=== PATIENT | female | born 1985 | race Caucasian/White ===

== ENCOUNTER → 2023-12-01 16:10 | Outpatient (CLI) | payer OTHER, SELFPAY ==
--- NOTE | 2023-12-01 16:16 | DI.MRI.S_ITS ---
PROCEDURE: MR KNEE LT WO CON INDICATIONS: PAIN TECHNIQUE: Noncontrast sagittal PD fast spin echo and T2 fast spin echo with fat saturation, sagittal 3-D FLASH with fat saturation; coronal T1 spin echo and PD fast spin echo with fat saturation, and axial PD fast spin echo with fat saturation through the knee. COMPARISON: None. FINDINGS: Image quality: Excellent. Anterior Cruciate Ligament: Intact. Posterior Cruciate Ligament: Intact. Medial Collateral Ligament: Intact. Lateral Collateral Ligament: Intact. Medial Meniscus: Intact. Lateral Meniscus: There is a large displaced vertical longitudinal tear of the posterior horn and body of the lateral meniscus with displaced meniscal tissue located in the intercondylar notch and along the inner margin of the anterior horn. There is scant residual nondisplaced meniscal tissue. Medial and Lateral Tendons: The semimembranosus tendon insertions and meniscocapsular junction appear intact. Visualized portions of the pes anserinus tendons appear normal. No abnormal bursal fluid. The long and short heads of the biceps femoris tendon appear intact. The popliteus tendon appears intact. No signs of posterolateral corner injury. Iliotibial band appears normal. Anterior Structures: The quadriceps and patellar tendons appear intact. No patellar subluxation. No femoral trochlear dysplasia or ventral trochlear prominence. No edema in the infrapatellar fat pad. Bones: No acute trabecular bone injury or fracture. Medial Femorotibial Cartilage: Mild generalized partial-thickness cartilage thinning in the weight-bearing portion.. Lateral Femorotibial Cartilage: No focal cartilage defect. Patellofemoral Cartilage: Deep cartilage fissuring is seen at the medial patellar facet. Soft Tissues: Small joint effusion is present. Trace medial popliteal cyst. The musculature surrounding the knee is normal in bulk. IMPRESSION: 1. Large displaced bucket-handle tear of the posterior horn and body of the lateral meniscus with displaced meniscal tissue located along the inner margin of the anterior horn and along the intercondylar notch. Medial meniscus is intact. 2. No acute trabecular bone injury. Cruciate and collateral ligaments are intact. 3. Mild partial-thickness cartilage thinning in the medial femorotibial compartment and focal cartilage fissuring in the anterior compartment. 4. Small joint effusion. Approved by: Gerardo Powers M.D. on 12/04/2023 at 9:29
== END ==
PROVIDERS: Referring Provider Nurse Practitioner Family; Visit Provider Nurse Practitioner Family
DX: S83.252A Bucket-handle tear of lateral meniscus, current injury, left knee, initial encounter (principal); M25.462 Effusion, left knee; M25.562 Pain in left knee
CPT/HCPCS: 73721